=== PATIENT | female | born 1935 | race Caucasian/White ===

== ENCOUNTER 2020-03-27 14:29 | Emergency (ER) | payer MEDICARE ==
[~2020-03-27] VITALS: Ht 157.5 cm; Wt 55.5 kg
[~2020-03-27 14:29] MED LIST: APIX5TAB3 PO; ESCI10TA61 PO; METF-436 PO; METO-411 PO; METO5TAB85 PO; OMEP20CA4 PO; SITA100T11 PO
[2020-03-27 15:54] LABS: EOSINOPHILS # (AUTO) 0.1 X10'3 (0-0.9); EOSINOPHILS % (AUTO) 1.9 % (0-6); LYMPHOCYTES # (AUTO) 0.9 X10'3 (1.1-4.8); LYMPHOCYTES % (AUTO) 21.7 % (21-51); MEAN CORPUSCULAR HEMOGLOBIN 26.5 PG (27.0-31.0); MEAN CORPUSCULAR HGB CONC 32.3 g/dL (33.0-36.5); MEAN CORPUSCULAR VOLUME 81.9 FL (78-98); MEAN PLATELET VOLUME 7.3 FL (7.4-10.4); MONOCYTES # (AUTO) 0.4 X10'3 (0-0.9); NEUTROPHILS # (AUTO) 2.7 X10'3 (1.8-7.7); NEUTROPHILS % (AUTO) 65.4 % (42-75); PLATELET COUNT 155 X10'3 (140-440); RED BLOOD COUNT 3.42 X10'6 (4.20-5.60); RED CELL DISTRIBUTION WIDTH 17.9 % (11.5-14.5); WHITE BLOOD COUNT 4.1 X10'3 (4.5-11.0)
[2020-03-27 16:17] LABS: ALANINE AMINOTRANSFERASE 15 U/L (12-78); ALBUMIN 2.8 G/DL (3.4-5.0); ALBUMIN/GLOBULIN RATIO 0.8 (1.1-1.5); ALKALINE PHOSPHATASE 95 IU/L (46-116); ANION GAP 7 (8-16); ASPARTATE AMINO TRANSFERASE 24 U/L (10-37); BILIRUBIN,TOTAL 0.5 MG/DL (0.1-1.0); BLOOD UREA NITROGEN 15 MG/DL (7-18); BUN/CREATININE RATIO 17.4 (6.6-38.0); CALCIUM 8.8 MG/DL (8.5-10.1); CHLORIDE 112 MMOL/L (99-107); CREATININE 0.86 MG/DL (0.40-0.90); GLUCOSE 121 MG/DL (70-104); POTASSIUM 4.1 MMOL/L (3.5-5.1); SODIUM 144 MMOL/L (135-145); TOTAL CARBON DIOXIDE 24.7 MMOL/L (24-32); TOTAL PROTEIN 6.4 G/DL (6.4-8.2); eGFR 62 ML/MIN
[2020-03-27] MEDS ORDERED: furosemide 10 MG/1 ML 10ml inj IV ONE (16:35)
[2020-03-27] MEDS ORDERED: POTASSIUM BICARB 20meq eff tab 20 MEQ TABLET.EFF PO ONE (16:35)
[2020-03-27 16:57] VITALS: BP 159/71
[2020-03-27] MEDS ORDERED: furosemide 20MG tablet PO ONE (17:10)
[2020-03-27] MEDS ORDERED: lactulose 20gm/30ml cup PO ONE (17:50)
--- NOTE | 2020-03-27 17:54 | NUR ---
SPOKE WITH TOMÁS A FEW TIMES AT THE FACILITY. WE HAVE ASSESSED THE PT'S ABD AND MD GONZALEZ HAS BEEN ASSISTED WITH A RECTAL EXAM. THE FACILITY STATES THEY DO NOT DO ENEMA'S SO WE WILL GIVE HER A ONE TIME DOSE OF LACTULOSE HERE. THE RECTAL EXAM SHOWED A DECENT AMOUNT OF STOOL BUT IT WAS SOFT. WILL CALL SON TO FIGURE OUT TRANSPORTATION HOME
--- NOTE | 2020-03-27 18:37 | NUR ---
CALLED [facility] AT [phone]. INFORMED THEY HAVE 2 OTHER PICKUPS IN ER AND IS NEXT TO BE PICKED UP
== END 2020-03-27 20:30 | disposition home or self-care (01) ==
LOC: ER 14:29
DX: R22.43 Localized swelling, mass and lump, lower limb, bilateral (principal); G35 Multiple sclerosis; I50.9 Heart failure, unspecified; E78.00 Pure hypercholesterolemia, unspecified; K21.9 Gastro-esophageal reflux disease without esophagitis; E11.42 Type 2 diabetes mellitus with diabetic polyneuropathy; G89.29 Other chronic pain; Z88.0 Allergy status to penicillin; Z88.2 Allergy status to sulfonamides; Z88.6 Allergy status to analgesic agent; Z88.8 Allergy status to other drugs, medicaments and biological substances; Z79.899 Other long term (current) drug therapy
CPT/HCPCS: 36415; 71045; 80053; 83880; 85025; 93005; 99284; 99285